=== PATIENT | male | born 1965 | race Caucasian/White ===

== ENCOUNTER → 2023-08-29 | Outpatient (CLI) | payer BC, SELFPAY ==
--- NOTE | 2023-08-29 12:45 | MRI_ITS ---
STUDY: MRI ARTHROGRAM OF THE RIGHT SHOULDER REASON FOR EXAM: Male, 57 years old. Shoulder pain, evaluate for labral tear. TECHNIQUE: 10.5 cc of dilute Clariscan contrast was injected into the right glenohumeral joint. MRI was obtained in all 3 orthogonal planes. In addition, a fat-suppressed T1-weighted sequence was performed with the patient''s arm in the abduction external rotation (ABER) position. COMPARISON: None. FINDINGS: There is mild supraspinatus tendinosis with articular surface fraying, but no full-thickness tear (coronal T2 series 4 image 12). There is mild infraspinatus and subscapularis tendinosis. Normal teres minor tendon. Normal supraspinatus muscle. Normal infraspinatus muscle. Normal subscapularis muscle. Normal teres minor muscle. Normal glenohumeral articulation. Normal humeral head and visualized proximal humerus. Normal biceps labral complex. Normal intracapsular long biceps tendon. Normal labrum. Normal capsulo-ligamentous complex. Normal rotator interval. There is hypertrophic acromioclavicular arthrosis, with inferior osteophyte formation, with mild effacement of the supraspinatus myotendinous junction (coronal T2 series 4 images 11-12). There is a Type II morphology (curved), with a neutral orientation. There is no subacromial-subdeltoid bursal fluid. Normal visualized coracohumeral and coracoacromial ligaments. Normal quadrilateral space. Normal axillary space. Normal deltoid muscle. Normal trapezius muscle. MRI/Upper Ext Jt Only W/Contrast IMPRESSION: Mild supraspinatus tendinosis with articular surface fraying, but no full-thickness rotator cuff tear. Mild infraspinatus and subscapularis tendinosis. Hypertrophic acromioclavicular arthrosis, with inferior osteophyte formation, with mild effacement of the supraspinatus myotendinous junction. Electronically Signed: Daryl Tolliver MD at 15:51 EST ,
--- NOTE | 2023-08-29 13:00 | RAD_ITS ---
STUDY: X-RAY - RIGHT SHOULDER REASON FOR EXAM: Male, 57 years old. ARTHROGRAM TECHNIQUE: 3 view(s) of the shoulder. COMPARISON: None. FINDINGS: Contrast is seen within the right shoulder joint. MRI will follow. RAD/Shoulder min 2 Views IMPRESSION: Contrast is seen within the right shoulder joint. MRI will follow. Electronically Signed: Kennedy Banerjee MD at 12:15 EST ,
[2023-08-29] MEDS: Lidocaine 2% (5ml sdv) 5 ML VIAL.MPF (13:08)
[2023-08-29] MEDS: Iopamidol 10 ML in Syringe 1 EACH 600 ML INTRAARTIC (13:10)
[2023-08-29] MEDS: Gadoterate meglumine 2.5 MMOL 10 ML, Iopamidol 5 ML, Lidocaine 1% (20 ml mdv) 5 ML, Epi... INTRAARTIC (13:10)
== END | disposition home or self-care (01) ==
LOC: RAD 12:32
PROVIDERS: PCP Family Medicine
DX: M25.511 Pain in right shoulder (principal); S43.431A Superior glenoid labrum lesion of right shoulder, initial encounter
CPT/HCPCS: 23350; 73030; 73222; 77002; Q9967